=== PATIENT | male | born 1980 | race African-American/Black ===

== ENCOUNTER 2016-08-15 09:10 | Emergency (ER) | payer SELFPAY ==
[2016-08-15] MEDS ORDERED: IBUPROFEN 600 MG TABLET ONE (09:42)
[2016-08-15] MEDS ORDERED: ACETAMINOPHEN 325 MG TABLET ONE (09:42)
--- NOTE | 2016-08-15 11:10 | RAD ---
EXAMINATION:HAND-RIGHT 3 VIEWS Clinical indication: Right hand injury. Initial encounter. Technique:3 views of the right hand were obtained. Comparison: None FINDINGS: No acute fracture or focal destruction is identified. Posttraumatic deformities of the right fourth and fifth metacarpals are noted. There is a dislocation of the right first metacarpal phalangeal joint. No soft tissue abnormality is identified. IMPRESSION: Dislocation right first metacarpal phalangeal joint. Posttraumatic deformities are noted as described.
[2016-08-15] MEDS ORDERED: PROPOFOL 20 ML IV ONE (12:33)
[2016-08-15] MEDS ORDERED: SODIUM CHLORIDE 0.9% 500 ML ONE (12:33)
[2016-08-15] MEDS ORDERED: KETAMINE HCL 50 MG/1 ML 10ML VIAL ONE (12:45)
[2016-08-15] MEDS ORDERED: FENTANYL 100 MCG/2 ML VIAL ONE (13:19)
--- NOTE | 2016-08-15 13:20 | RAD ---
EXAMINATION:HAND-RIGHT 3 VIEWS Clinical indication: Status post reduction of right thumb dislocation. Technique:3 views of the right hand were obtained. Comparison: 08/15/2016. FINDINGS: No displaced fractures identified. The dislocated first metacarpal phalangeal joint now appears anatomically aligned. No soft tissue abnormality is identified. IMPRESSION: Satisfactory reduction right thumb dislocation. No displaced fractures identified.
[2016-08-15] MEDS ORDERED: HYDROCODONE/ACETAMINOPHEN 5/325MG TABLET ONE ×2 (13:47)
== END 2016-08-15 14:11 | disposition home or self-care (01) ==
LOC: ED 09:10
DX: S63.114A Dislocation of metacarpophalangeal joint of right thumb, initial encounter (principal); W22.01XA Walked into wall, initial encounter; F17.200 Nicotine dependence, unspecified, uncomplicated
CPT/HCPCS: 73130 ×2; 99283 ×2; 26700 ×2; 96374; 99152 ×2; J3010; A9270 ×4; J7040